=== PATIENT | male | born 1990 | race Caucasian/White ===

== ENCOUNTER 2019-08-28 14:12 | Emergency (ER) | payer MEDICAID ==
[~2019-08-28] VITALS: Ht 160 cm; Wt 79.4 kg
--- NOTE | 2019-08-28 14:50 | NUR ---
Admit a 28 yr old male in rm 2A for psychiatric evalution.
--- NOTE | 2019-08-28 14:55 | NUR ---
Pt denies SI/HI.
[2019-08-28 15:47] LABS: BASOPHILS # (AUTO) 0.1 K/uL (0.0-8.0); BASOPHILS % (AUTO) 0.5 % (0.0-2.0); EOSINOPHILS % (AUTO) 0.3 % (0.0-7.0); HEMATOCRIT 41.5 % (36.7-47.1); HEMOGLOBIN 13.6 g/dL (12.5-16.3); LYMPHOCYTES # (AUTO) 1.7 K/uL (20.0-40.0); LYMPHOCYTES % (AUTO) 13.9 % (20.5-51.5); MEAN CORPUSCULAR HGB CONC 33 g/dL (32.5-36.3); MEAN CORPUSCULAR VOLUME 64.4 fL (73.0-96.2); MONOCYTES # (AUTO) 0.5 K/uL (2.0-10.0); MONOCYTES % (AUTO) 4.3 % (0.0-11.0); PLATELET COUNT (AUTO) 271 K/uL (152-348); RED BLOOD CELL COUNT(AUTO) 6.45 MIL/uL (4.06-5.63); WHITE BLOOD COUNT (AUTO) 12.4 K/uL (3.6-10.2)
[2019-08-28 15:55] LABS: CARBON DIOXIDE 30 mmol/L (21-32); CHLORIDE 104 mmol/L (98-107); GLUCOSE 103 mg/dL (74-106); POTASSIUM 3.8 mmol/L (3.5-5.1); UREA NITROGEN, BLOOD 15 mg/dL (7-18)
[2019-08-28 16:00] LABS: ALANINE AMINOTRANSFERASE 27 U/L (16-63); ALKALINE PHOSPHATASE 87 U/L (50-136); ASPARTATE AMINOTRANSFERASE 18 U/L (15-37); BILIRUBIN,DIRECT 0.1 mg/dL (0.0-0.2); BILIRUBIN,TOTAL 0.4 mg/dL (0.2-1.0); TOTAL PROTEIN, SERUM 7.6 g/dL (6.4-8.2)
[2019-08-28 16:01] LABS: ACETAMINOPHEN < 10.0 ug/mL (10-30)
[2019-08-28 16:17] LABS: ETHANOL < 3 MG/DL (0-0); LYMPHOCYTES % (MANUAL) 19 % (20-40); MONOCYTES % (MANUAL) 1 % (2-10); NEUTROPHILS % (MANUAL) 80 % (42-75)
--- NOTE | 2019-08-28 16:20 | NUR ---
Seen and examined by Dr Beasley with new order. Urine sample collected and sent to lab as ordered.
[2019-08-28 16:22] LABS: THYROID STIMULATING HORMONE 0.849 mIU/mL (0.358-3.740)
[2019-08-28 17:05] LABS: *BILIRUBIN,URIN NEGATIVE (NEGATIVE); *BLOOD, URINE NEGATIVE (NEGATIVE); *CLARITY,URINE CLEAR (CLEAR); *COLOR,URINE YELLOW (YELLOW); *KETONES,URINE NEGATIVE (NEGATIVE); LEUKOCYTE ESTERASE ,URINE NEGATIVE (NEGATIVE); NITRITE, URINE NEGATIVE (NEGATIVE); PH,URINE 6.5 (5.0-8.0); UGLUCOSE NEGATIVE (NEGATIVE)
[2019-08-28 17:07] LABS: BACTERIA,URINE FEW /HPF (NONE SEEN); MUCUS,URINE FEW /LPF (0-FEW); RBC,URINE NONE SEEN /HPF (0-3); WBC,URINE NONE SEEN /HPF (0-3)
[2019-08-28 17:17] LABS: *AMPHETAMINE, URINE NEGATIVE (NEGATIVE); *BARBITURATE, URINE NEGATIVE (NEGATIVE); *CANNABINOID, URINE NEGATIVE (NEGATIVE); *COCCAINE, URINE NEGATIVE (NEGATIVE); *OPIATE, URINE NEGATIVE (NEGATIVE); *PHENCYCLIDINE SCREEN,URINE NEGATIVE (NEGATIVE)
--- NOTE | 2019-08-28 17:36 | NUR ---
called Mumtaz Zhu, crisis waffle machine operator, for psych eval. ETA 45 min.
--- NOTE | 2019-08-28 18:01 | NUR ---
zayda velasquez at bedside for psych eval
--- NOTE | 2019-08-28 19:15 | NUR ---
Assumed care of patient from day shift RN Varinderi. Patient being assessed by Mumtaz at this time.
[2019-08-28 19:33] VITALS: BP 110/80
--- NOTE | 2019-08-28 19:33 | NUR ---
Pt ambulated out of the ER with steady gait. All belongings with pt.
== END 2019-08-28 19:33 | disposition home or self-care (01) ==
LOC: ER 14:12
DX: Z04.6 Encounter for general psychiatric examination, requested by authority (principal)
CPT/HCPCS: 36415; 80048; 80076; 80307; 81000; 81001; 84443; 85007; 85025; 85730; 99283; G0480 ×2; G0481; 70030-TC; A4663